=== PATIENT | female | born 1960 | race Caucasian/White ===

== ENCOUNTER 2018-02-26 06:14 | Day surgery (SDC) | payer OTHER, SELFPAY ==
[2018-02-26 06:20] VITALS: BP 123/85; PULSE 97; RESP 16; TEMP 36.4; O2SAT 96
--- NOTE | 2018-02-26 06:44 | W.PM.DSUDISC ---
Discharge Plan Disposition Patient Disposition: HOME Condition: Fair Discharge Details Reason For Visit: PERSONAL HX COLON CA Attending Provider: Gypsy Ruff Primary Care Provider: Lloyd Jansen Home Meds and New Rx's Prescriptions: Continue ul-np-zibb-FA-herbal cmplx#190 [Vitamin D3 Complete] 1 EACH tablet 1 ea PO DAILY RF: 0 Discontinued bisacodyl [Bisa-Lax] 5 MG tablet,delayed release (DR/EC) 5 mg PO as directed Qty: 4 RF: 0 polyethylene glycol 3350 255 GM powder 255 gm PO as directed for colo Qty: 255 RF: 0 Discharge Instructions Instructions: Colonoscopy (DC), Diverticulosis (DC) Additional Instructions: Findings: 4 small polyps No re-growth in the area of the previous polyps Mild diverticulosis Follow up: depends on final pathology Diet: high fiber New Medications: none Please call if you develop: fevers >101.5 Nausea or Vomiting Abdominal pain that is not transient 1. Because there will be medication in your system for the next 24 hours, you may feel a little sleepy. Your coordination will be affected. Therefore: a. Do not drive or operate dangerous equipment for 24 hours. b. Do not drink alcohol beverages for 24 hours (not even beer). c. Plan to go home and rest for the day. 2. Generally there are no restrictions on your activity after a day or so has gone by, but you may feel a bit fatigued for a few days. 3 After you arrive home you may have a light meal and return to a normal diet as you can tolerate it without feeling sick to your stomach. 4. After surgery, you may feel pain or discomfort. This should be only transient, but if it persists please contact your doctor. 5. If there are any questions regarding the findings of your procedure, please feel free to contact your doctor ([phone]) 6. If you are unable to contact your doctor with a problem, contact the hospital at [phone]. 7. Continue all your regular medications unless directed otherwise. I understand the above instructions and have no questions. Signature of Patient or Responsible Adult Escort Date/Time Name of Responsible Adult Escort Signature of Nurse Date/Time Activity:: Activity as Tolerated Diet:: high fiber Discharge Orders Discharge Orders: Discharge Order (Routine); Ordered 02/26/18 Ordered By: Gypsy Ruff DS: Diagnosis Discharge Diagnosis (1) Diverticulosis: Status: Acute (2) Colorectal polyps: Status: Acute
--- NOTE | 2018-02-26 06:47 | PDOC.DSDIS_ITS ---
Discharge Plan Disposition Patient Disposition: HOME Condition: Fair Discharge Details Reason For Visit: PERSONAL HX COLON CA Attending Provider: Gypsy Ruff Primary Care Provider: Lloyd Jansen Home Meds and New Rx's Prescriptions: Continue yd-cy-sjhm-FA-herbal cmplx#190 [Vitamin D3 Complete] 1 EACH tablet 1 ea PO DAILY RF: 0 Discontinued bisacodyl [Bisa-Lax] 5 MG tablet,delayed release (DR/EC) 5 mg PO as directed Qty: 4 RF: 0 polyethylene glycol 3350 255 GM powder 255 gm PO as directed for colo Qty: 255 RF: 0 Discharge Instructions Instructions: Colonoscopy (DC), Diverticulosis (DC) Additional Instructions: Findings: 4 small polyps No re-growth in the area of the previous polyps Mild diverticulosis Follow up: depends on final pathology Diet: high fiber New Medications: none Please call if you develop: fevers >101.5 Nausea or Vomiting Abdominal pain that is not transient 1. Because there will be medication in your system for the next 24 hours, you may feel a little sleepy. Your coordination will be affected. Therefore: a. Do not drive or operate dangerous equipment for 24 hours. b. Do not drink alcohol beverages for 24 hours (not even beer). c. Plan to go home and rest for the day. 2. Generally there are no restrictions on your activity after a day or so has gone by, but you may feel a bit fatigued for a few days. 3 After you arrive home you may have a light meal and return to a normal diet as you can tolerate it without feeling sick to your stomach. 4. After surgery, you may feel pain or discomfort. This should be only transient , but if it persists please contact your doctor. 5. If there are any questions regarding the findings of your procedure, please feel free to contact your doctor ([phone]) 6. If you are unable to contact your doctor with a problem, contact the hospital at [phone]. 7. Continue all your regular medications unless directed otherwise. I understand the above instructions and have no questions. Signature of Patient or Responsible Adult Escort Date/Time Name of Responsible Adult Escort Signature of Nurse Date/Time Activity:: Activity as Tolerated Diet:: high fiber Discharge Orders Discharge Orders: Discharge Order (Routine); Ordered 02/26/18 Ordered By: Gypsy Ruff DS: Diagnosis Discharge Diagnosis (1) Diverticulosis: Status: Acute (2) Colorectal polyps: Status: Acute
--- NOTE | 2018-02-26 06:47 | W.COLOREPORT ---
Date of service: 02/26/18 Time of Service: 07:30 Colonoscopy Report Date of procedure: 02/26/18 Pre-op diagnosis general: Adenocarcinoma of colon polyp Post-op diagnosis procedure note: same Procedure: Colonoscopy Surgeon: Gypsy Ruff Anesthesia proc note operative: MAC (Puneet Benitez CRNA) Estimated blood loss (mL): 3 Pathology: other (4 polyps) Complications: None Disposition: same day Indications: Mrs. Corey is a pleasant 57 year old female who underwent a colonoscopy in May and was found to have 2 polyps. One polyp had focal adenocarcinoma and one had high grade dysplacia. She is here for a follow up colonsocopy to make sure there is no regrowth. Risks, benefits and complications have been reviewed and she wished to proceed. No gurantees were given or implied. Prep: Miralax (and dulcolax- prep was adequate) Procedure Start Time: 07:29 Procedure End Time: 07:57 Retraction Time: 17 min Findings: 4 small polyps and mild diverticulosis No re-growth noted at the tatooed areas Procedure Description: After informed consent was obtained the patient was taken to the procedure room and placed in the left decubitus position. Monitors were applied and a timeout was done. Patient's name date of procedure type allergies to medications of metal in her body were all reviewed. The patient was then sedated and once sedated and comfortable rectal exam was done. External exam was normal and internal exam revealed a normal sphincter tone and no palpable masses. The scope was introduced and retroflexed no internal hemorrhoids were noted. The scope was straightened and advanced to the cecum without difficulty. The T and appendiceal orifice were both identified. The prep was adequate. The scope was then slowly retracted over [address] back into the rectum. 4 small polyps were identified and removed with cold forceps. One in the ascending colon one in the transverse colon one in the sigmoid colon and one in the rectum. There are 2 areas where she had the prior polyps removed were identified by the tattooing. No regrowth was noted in both those areas. Once this scope was removed the patient was woken up and taken back to recovery in stable condition.
[2018-02-26] MEDS: Lactated Ringers 1,000 ML 80 ML IV (06:51)
--- NOTE | 2018-02-26 07:31 | BOWEL_PTH ---
PATIENT: April Corey LOC: [facility] U#:[id number] AGE/SX: 57/F ROOM: RE02/26/[address]: Gypsy Ruff MD : 1960 BED: DIS: 02/26/2018 SPEC #: [id number] RECD: 02/26/18 12:52 STATUS: PAOLA RE #: [id number] REYNALDO: 02/26/18 07:[address]: Gypsy Ruff DEPT: Surgical Specimen RECD BY: Nedra La ENTERED: 02/26/18 12:54 SP TYPE: Bowel OTHR DR: Lloyd Jansen Tissues: 1 - BIOPSY BOWEL 2 - BIOPSY BOWEL 3 - BIOPSY BOWEL 4 - BIOPSY BOWEL Procedures: GROSS AND MICRO LEVEL 4 Comments: [id number]
[2018-02-26 08:30] VITALS: BP 137/84; PULSE 84; RESP 18; TEMP 37; O2SAT 99
== END 2018-02-26 08:55 | disposition home or self-care (01) ==
PROVIDERS: PCP Family Medicine; Visit Provider Surgery
PROC: 0DJD8ZZ Inspection of Lower Intestinal Tract, Via Natural or Artificial Opening Endoscopic (ICD-10-PCS; CPT 45378; principal; 2018-02-26 07:30)
DX: C18.7 Malignant neoplasm of sigmoid colon (principal); K63.5 Polyp of colon; D12.2 Benign neoplasm of ascending colon; D12.3 Benign neoplasm of transverse colon
CPT/HCPCS: 45380; 88305

== ENCOUNTER 2021-06-04 18:29 | Outpatient (REF) | payer OTHER, SELFPAY ==
[2021-06-04 18:56] LABS: Calculated LDL 81 mg/dL (<100); Cholesterol 166 mg/dL (<200); HDL Cholesterol 60 mg/dL (40-60); Triglyceride 128 mg/dL (<150)
[2021-06-04 18:59] LABS: Hemoglobin A1C 4.9 % (<5.7)
== END 2021-06-04 18:30 | disposition home or self-care (01) ==
LOC: NCHCN 18:29
PROVIDERS: PCP Family Medicine; Visit Provider Family Medicine
DX: C18.9 Malignant neoplasm of colon, unspecified (principal); Z00.00 Encounter for general adult medical examination without abnormal findings
CPT/HCPCS: 80061; 83036

== ENCOUNTER 2021-08-18 01:09 | Outpatient (CLI) | payer OTHER, SELFPAY ==
--- NOTE | 2021-08-18 | DI.MAMMO_ITS ---
Exam(s) MAMMO SCREENING EXAM: MAMMO SCREENING CLINICAL HISTORY: SCREENING, Z12.39 TECHNIQUE: Mammograms were interpreted according to the usual protocol including computer analysis w [facility] CAD system, tomosynthesis and C-view imaging. COMPARISON: FINDINGS: The breasts are heterogeneously dense. No dominant mass or clumped microcalcification is identified in either breast. The current examination is compared with previous examinations including October 2017 and there has been no gross interval change in appearance in comparison with the prior studies. IMPRESSION: No specific evidence of malignancy at this time. Routine screening examinations are suggested at yea rly intervals in this age group according to the ACS ACR guidelines. BI-RADS Category 1 - Negative Breast Density - Category C - Heterogeneously dense
== END 2021-08-18 01:29 ==
PROVIDERS: PCP Family Medicine; Visit Provider Family Medicine
DX: Z12.31 Encounter for screening mammogram for malignant neoplasm of breast (principal); R92.8 Other abnormal and inconclusive findings on diagnostic imaging of breast
CPT/HCPCS: 77063; 77067

== ENCOUNTER 2021-10-19 07:07 | Day surgery (SDC) | payer OTHER, SELFPAY ==
--- NOTE | 2021-10-18 10:19 | W.COLOREPORT ---
Colonoscopy Report Date of procedure: 10/19/21 Pre-op diagnosis general: Polyps with high-grade dysplasia and cancer Post-op diagnosis procedure note: other (mult polyps) Surgeon: Windy Lancaster Anesthesia Type: General:No Airway Estimated blood loss (mL): 1 Pathology: other Complications: None Disposition: same day Prep: Miralax/Dulcolax Retraction Time: 30 mins Procedure Description: -In 2016 patient had x2 polyps that were abnormal. Descending sigmoid at 37 5 cm adenocarcinoma with high-grade dysplasia 15 cm villous with high-grade dysplasia -In 2018 patient had a ascending colon polyp that did show serrated with high-grade dysplasia. This area was tattooed. After informed consent was obtained the patient was taken to the procedure room and placed in a left decubitous position. Monitors were applied and a time out was done. The patients name, date of , procedure, allergies to medications and metal in their body was reviewed. The patient was then sedated. Once sedated and comfortable a rectal exam was done. External exam was normal. Internal exam revealed a normal sphincter tone and no palpable masses. The scope was then introduced and retrofelexed. No internal hemorrhoids were identified. The scope was then advanced to the cecum withoutdifficulty. The TI and appendiceal orifice were identified. The prep was the BPS 3 in all segments for a total of 9. The colon is very tortuous and redundant. [place] through the procedure, patient developed significant secretions that were compromising her airway. We could not ameliorate the secretions by medications only. We still had a significant mount of polyps to remove at that point. At that point there was concern for aspiration and the procedure was converted to a General with ET tube to protect her airway. Have the scope was then slowly retracted over 30minutes back into the rectum. she had x2 diminutive flat polyps in the cecum that are removed with a cold biopsy forcep. She had another polyp small, flat, adjacent to the cecum/ 100 cm that is removed with a cold biopsy forcep. She had a 0.75 cm polyp flat removed at 80 cm with a hot biting forcep and 0.75 cm flat polyp at 60 cm is removed with a hot biting forcep. All specimens are retrieved and no bleeding is noted. The area of the previous tattoo was noted. There is no polyp recurrence in this area. There are no diverticula. The mucosa is pink and healthy with a normal vascular pattern. And the patient was woken up and taken back to PACU in stable condition. The patient tolerated the procedure well and there were no immediate complications. Follow up: The patient should follow up in 1 years unless they develop changes in bowel habits or other new gastrointestinal complaints. Post Op pt was c/o sore throat. She did vomiting in PACU. The material did appear to be coffee ground. She was not having any abdominal pain. She did tolerate liquids and a small snack in SDS. She was passing flatus and not having any abdominal pain. Her only complaint was sore throat. She should gargle with salt water 5-6 times a day. This should pass in the next 24 to 48 hours. Because of the number of polyps, and her history of cancerous polyps, she should have the scope repeated in 1 years time.
--- NOTE | 2021-10-18 10:25 | PDOC.DSDIS_ITS ---
Discharge Plan Disposition Patient Disposition: HOME Condition: Good Discharge Details Reason For Visit: colon scope Attending Provider: Windy Lancaster Primary Care Provider: Lloyd Jansen Home Meds and New Rx's Prescriptions: Discontinued bisacodyl [Dulcolax (bisacodyl)] 5 mg tablet,delayed release (DR/EC) 5 mg PO ONCE Qty: 4 0RF Rx Instructions: Take according to provider's instructions for colonoscopy prep. polyethylene glycol 3350 17 gram/dose powder 17 g PO ONCE Qty: 238 0RF Rx Instructions: To be taken as directed by prescriber's office for colonoscopy prep. No Action cholecalciferol (vitamin D3) 50 mcg (2,000 unit) capsule 50 mcg PO DAILY 0RF Discharge Instructions Additional Instructions: [facility] Colonoscopy Post- Op Instructions Instructions for Everyone who is given Anesthesia: For your safety, please do the following for the next twenty-four (24) hours: *Do Not operate a motor vehicle (car, truck, motorcycle, etc.) *Do Not drink alcoholic beverages or use any recreational drugs for the first 24 hours or while taking pain medications. The medications in your body may have a reaction that can be dangerous. *Do Not make any important decisions or sign any important papers. Findings: multiple polyps Follow up: repeat in 1year -no asa/nsaid (motrin/ibuprofen/naproxen) 1. No lifting over 20 pounds or strenuous activity for the first 24 hours after your procedure. After 24 hours there are no restrictions on your activity but you may feel fatigued for a few days. 2. After you arrive home you may have a light meal and return to your normal diet as you can tolerate it without feeling sick to your stomach. 3. You may have a bloated, gaseous feeling in your belly (abdomen) after a colonoscopy. Passing gas and belching will help. Walking or lying down on your left side with your knees flexed may relieve the discomfort. Call the office at [phone] (Office) or [phone] (Hospital) right away i f you notice any of the following: a.Vomiting of blood or ?coffee ground stools?. b.Rectal bleeding 1Tbsp, blood clots or continuous bleeding. c.Severe belly (abdominal) pain. d.A hard distended belly (abdomen) and an inability to pass gas. 4. Please don?t expect to have a normal BM (bowel movement) for 2-3 days after your procedure. 5. If there are questions regarding the findings of your procedure, please contact your doctor 6. If you are unable to contact your doctor with a problem, contact the hospital at [phone]. 7. Continue all your regular medications unless directed otherwise. I understand the above instructions and have no questions. Signature of Patient or Adult Escort Name of Responsible Adult Escort Signature of Nurse Date/Time Activity:: see above Diet:: see above Discharge Orders Discharge Orders: Discharge Order (Routine); Ordered 10/18/21 Ordered By: Windy Lancaster
[2021-10-19] VITALS (10 sets, daily range): BP systolic 89–121; BP diastolic 54–80; PULSE 76–120; RESP 16–30; TEMP 36.1–36.5; O2SAT 92–97; BMI 28.0
--- NOTE | 2021-10-19 06:21 | ANES.PREOP_ITS ---
General Info Date of Service Date Performed: 10/19/21 Height: 5 ft 4 in Weight: 74.049 kg Body Mass Index (BMI): 28.0 Surgical Procedure: Operation Date: 10/19/21 08:20 Proposed Procedure Side Surgeon abbe Lancaster, Meds Allergies and Home Medications Allergies Allergy/AdvReac Type Severity Reaction Status Date / Time No Known Allergies Allergy Unverified 10/19/21 07:27 Home Medication Medication Instructions Recorded cholecalciferol (vitamin D3) 50 50 mcg PO DAILY 09/24/21 mcg (2,000 unit) capsule Current Visit Medications: Current Medications Generic Name Dose Route Start Last Admin Trade Name Freq PRN Reason Stop Dose Admin Hyoscyamine Sulfate 0.125 mg 10/18/21 10:18 Hyoscyamine 0.125 Mg Sl/Oral/Chew SL DIRECTED PRN Ringer's Solution 1,000 mls @ 80 mls/hr 10/19/21 06:00 IV 11/17/21 23:59 INFUSION [facility] IV Miscellaneous Supplies 1 each 10/19/21 06:00 Iv Access IV 11/17/21 23:59 DIRECTED WINDY Ondansetron HCl 4 mg 10/18/21 10:18 Ondansetron 4 Mg/2 Ml Vial IVP Q4H PRN PRN Nausea / Vomiting Sodium Chloride 0 ml 10/19/21 06:00 Normal Saline Flush 10 Ml Syr IV 11/17/21 23:59 PRN PRN Sodium Chloride 0 ml 10/19/21 06:00 Normal Saline 10 Ml Vial IJ 11/17/21 23:59 DIRECTED PRN Sterile Water 0 ml 10/19/21 06:00 Water,Injection,Sterile 10 Ml Vial IJ 11/17/21 23:59 DIRECTED PRN PFSH Active Problems Active Problems: Problem Status Onset Code Diverticulosis K57.90 Colorectal polyps K63.5 Atrophic vaginitis 10/27/15 N95.2 Tubular adenoma of colon 12/27/16 D12.6 Cystocele 10/27/15 Tubular adenoma 05/23/16 D36.9 Screening for colon cancer Z12.11 Medical History Medical History Colon cancer Per pt. states she had one polyp that was cancerous, didn't require tx for it. Polyp of sigmoid colon with adenocarcinoma in the head Vitamin D deficiency Surgical History Surgical History Colonoscopy - MAC (05/23/16) Colonoscopy - MAC (12/27/16) History of colonoscopy (~10/2017) Sigmoidoscopy (12/27/16) tubular adenoma Tobacco Smoking/Tobacco Use Status: Former Tobacco Use Alcohol Alcohol Intake: current Alcohol intake frequency: a few times a month Alcohol type: beer Substance Use Substance use: Never Substance use type: does not use Vital Signs and Lab Results Vital Signs Most Recent Vital Signs in EMR: Temp Pulse Resp BP Pulse Ox 36.4 C L 120 H 18 121/80 97 10/19/21 07:20 10/19/21 07:20 10/19/21 07:20 10/19/21 07:20 10/19/21 07:20 Lab Results Blood Type / Crossmatch: No Data to Display Complete Blood Count: No Data to Display Complete Metabolic Panel: No Data to Display Liver Function Panel: No Data to Display Coagulation Panel: No Data to Display Cardiac Panel: No Data to Display Arterial Blood Gas: No Data to Display Venous Blood Gas: No Data to Display Pancreas Panel: No Data to Display Thyroid Panel: No Data to Display Infectious Disease: No Data to Display Blood Cultures: No Data to Display Toxicology Panel: No Data to Display Anesthesia Assessment and Plan Anesthesia History Personal History: No History of Anesthesia Complications Family History: No Family History of Anesthesia Complications Exercise Tolerance Exercise Tolerance: Metabolic Equivalents>4 Cardiac & Pulmonary Exam Cardiac Exam: Normal S1/S2 Heart Sounds Pulmonary Exam: Clear Bilateral Breath Sounds Implantable Cardiac Device Does patient have a Pacemaker or an ICD?: No Airway Exam Known Difficult Airway: No Mallampati Class: 3 Mouth Opening: Normal (> 3cm) Thyromental Distance: Greater than 3 cm Neck Range of Motion: Full ROM Neck Circumference: Normal Teeth Condition: Normal Dentition ASA Classification ASA Score: ASA 2 Emergency Case?: No NPO Status NPO Status: NPO Clears >2 hours, Solids >8 hours Anesthesia Plan Resuscitation Status: Full Code Anesthesia Technique: General Anesthesia Airway Planned: Natural Airway Monitors Used: Standard Monitors Preoperative Comments:: 61 yo female with history of polyps for colonoscopy. Sig PMHx: former smoker, occ EtOH. Previous colo without issues.
[2021-10-19] MEDS: Lactated Ringers 1,000 ML 80 ML IV (07:39)
--- NOTE | 2021-10-19 08:58 | BOWEL_PTH ---
PATIENT: April Corey LOC: [facility] U#:[id number] AGE/SX: 61/F ROOM: RE10/19/[address]: Windy Lancaster : 1960 BED: DIS: 10/19/2021 SPEC #: [id number] RECD: 10/19/21 10:52 STATUS: PAOLA RE #: [id number] REYNALDO: 10/19/21 08:[address]: Windy Lancaster DEPT: Surgical Specimen RECD BY: Nedra La ENTERED: 10/19/21 10:53 SP TYPE: Bowel OTHR DR: Lloyd Jansen Tissues: 1 - BIOPSY BOWEL 2 - BIOPSY BOWEL 3 - BIOPSY BOWEL 4 - BIOPSY BOWEL Procedures: GROSS AND MICRO LEVEL 4 Comments: [id number]
[2021-10-19 09:48] LABS: Source Nasal/Nares
[2021-10-19 10:32] LABS: COVID-19 PCR Negative (Negative)
--- NOTE | 2021-10-19 10:37 | ANES.POST_ITS ---
Postoperative Evaluation Date, Time and Location Date Performed: 10/19/21 Time Performed: 12:16 Patient Location: Day Surgery Unit Vital Signs Most Recent Imported Vital Signs: Most Recent Vital Signs Temp Pulse Resp BP Pulse Ox 36.1 C L 91 H 30 H 120/73 95 10/19/21 10:17 10/19/21 10:17 10/19/21 10:17 10/19/21 10:17 10/19/21 10:17 Pain Score Most Recent Pain Score: Most Recent Pain Score Pain Level 0 10/19/21 07:20 Assessment Mental Status: Awake (Alert & Oriented to Patient Baseline) Airway and Respiratory Function: Patent airway with normal (patient baseline) respiratory exam Cardiovascular Function: Hemodynamically Stable Hydration Status: Adequately Hydrated Nausea & Vomiting: Active Nausea or Vomiting Present Nausea and Vomiting Management: Nausea and vomiting active, being addressed with medication Pain: Pt. Denies Any Pain Peripheral Nerve Block: Patient did not receive a nerve block Postoperative Comments:: On arousal in PACU, vomiting brown liquid, ~ 75 mL caught in suction, per patient financial representative ~200-400 mLs total of brown particulate liquid out. On arrival to DSU did discuss with patient the course of her case and the need for a breathing tube during the procedure. she states that she was NPO and was hungry. She was advised to follow up with the ED if she developed shortness of breath, fever, or any concerning respiratory symptoms.
--- NOTE | 2021-11-01 08:17 | PDOC.ANES ---
Date of service: 10/25/21 Time of Service: 13:17 Anesthesia Note Report Anesthesia Note: Called [phone] to follow up with April in regards to her recent potential aspiration during her colonoscopy. There was no answer and a message was left to call with any concerns.
== END 2021-10-19 13:08 | disposition home or self-care (01) ==
PROVIDERS: PCP Family Medicine; Visit Provider Surgery
PROC: 0DJD8ZZ Inspection of Lower Intestinal Tract, Via Natural or Artificial Opening Endoscopic (ICD-10-PCS; CPT 45378; principal; 2021-10-19 08:15)
DX: Z12.11 Encounter for screening for malignant neoplasm of colon (principal); K63.5 Polyp of colon; Z86.010 Personal history of colon polyps; E55.9 Vitamin D deficiency, unspecified; Z85.038 Personal history of other malignant neoplasm of large intestine
CPT/HCPCS: 45384; 45380; 87635; 88305; J2250; J2704

== ENCOUNTER 2023-04-21 10:06 | Day surgery (SDC) | payer BC, SELFPAY ==
--- NOTE | 2023-04-20 21:31 | PDOC.DSDIS_ITS ---
Date of service: 04/21/23 Time of Service: 14:16 Discharge Plan Disposition Patient Disposition: Home Condition: Good Discharge Details Reason For Visit: colon scope Attending Provider: Windy Lancaster Primary Care Provider: Lloyd Jansen Home Meds and New Rx's Prescriptions: No Action cholecalciferol (vitamin D3) 50 mcg (2,000 unit) capsule 50 mcg PO DAILY Discharge Instructions Additional Instructions: DSU Colonoscopy Post- Op Instructions Instructions for Everyone who is given Anesthesia: For your safety, please do the following for the next twenty-four (24) hours: *Do Not operate a motor vehicle (car, truck, motorcycle, etc.) *Do Not drink alcoholic beverages or use any recreational drugs for the first 24 hours or while taking pain medications. The medications in your body may have a reaction that can be dangerous. *Do Not make any important decisions or sign any important papers. Findings: x6 polyps Follow up: My office will send you a letter with the biopsy/pathology results, and when we want you to repeat the colonoscopy. Most likely 2 years time. 1. No lifting over 20 pounds or strenuous activity for the first 24 hours after your procedure. After 24 hours there are no restrictions on your activity but you may feel fatigued for a few days. 2. After you arrive home you may have a light meal and return to your normal diet as you can tolerate it without feeling sick to your stomach. 3. You may have a bloated, gaseous feeling in your belly (abdomen) after a colonoscopy. Passing gas and belching will help. Walking or lying down on your left side with your knees flexed may relieve the discomfort. Call the office at [phone] (Office) or [phone] (Hospital) right away if you notice any of the following: a.Vomiting of blood or ?coffee ground stools?. b.Rectal bleeding 1Tbsp, blood clots or continuous bleeding. c.Severe belly (abdominal) pain. d.A hard distended belly (abdomen) and an inability to pass gas. 4. Please don?t expect to have a normal BM (bowel movement) for 2-3 days after your procedure. 5. If there are questions regarding the findings of your procedure, please contact your doctor 6. If you are unable to contact your doctor with a problem, contact the hospital at [phone]. 7. Continue all your regular medications unless directed otherwise. I understand the above instructions and have no questions. 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 The patient has been able to pass gas.? They are not having abdominal pain.? They have been able to tolerate liquids and a snack.? They do not have any nausea or vomiting.? They are not having any chest pain or shortness of breath.??? They are not having any rectal bleeding. Their vital signs have been stable-see nursing notes. We discussed findings during their colonoscopy, and any biopsies that were done/polyps that were removed. The patient will be sent a letter with any biopsy results, and when to repeat the colonoscopy.-see discharge instructions. Patient was given explicit instructions to follow-up regarding colonoscopy-refer to discharge instructions.? We reviewed resumption of medications. Patient verbalized understanding and discharged in stable and satisfactory condition- See nursing notes.
--- NOTE | 2023-04-20 21:40 | W.COLOREPORT ---
Date of service: 04/21/23 Time of Service: 14:11 Colonoscopy Report Date of procedure: 04/21/23 Pre-op diagnosis general: hx of mult tubular adenomatous/advanced polyp/cancerous in sigmoid Post-op diagnosis procedure note: same ( sigmoid diverticula) Surgeon: Windy Lancaster Anesthesia Type: General LMA/ETT Estimated blood loss (mL): 4 Pathology: other Complications: None Disposition: same day Prep: Miralax/Dulcolax Retraction Time: 29 Procedure Description: After informed consent was obtained the patient was taken to the procedure room and placed in a left decubitous position. Monitors were applied and a time out was done. The patients name, date of , procedure, allergies to medications and metal in their body was reviewed. The patient was then sedated. Once sedated and comfortable a rectal exam was done. External exam was normal. Internal exam revealed a normal sphincter tone and no palpable masses. The scope was then introduced and retrofelexed. No internal hemorrhoids were identified. The scope was then advanced to the cecum w/out difficulty. The TI and appendiceal orifice were identified. The prep was BBPS 3 in all segments for total of 9 go she does follow okay. The scope was then slowly retracted over 29 minutes back into the rectum. She has a few small scattered diverticula in the sigmoid colon with no signs of active bleeding or infection. She had multiple polyps removed today. She has a small flat 0.5 cm polyp in the cecum that is removed with a cold biting forcep. She had a flat 1 cm polyp at 90 cm that is removed with a cold biting forcep. A clip was placed across the defect. She has x2 polyps at 70 cm: The First polyp is removed with a cold snare-1 cm pedunculated polyp. A clip was placed across the defect. The other polyp is removed with a cold forcep-.5 cm flat polyp the scope was removed. She has x2f 0.5 cm flat polyp at 50 cm that are removed with cold biting forcep. She has a 0.75 cm polyp at 30 cm that is removed with a cold biting forcep. And the patient was woken up and taken back to Same day surgery in stable condition. All specimens are retrieved and no bleeding is noted. The mucosa is otherwise pink and healthy with a normal vascular pattern The patient tolerated the procedure well and there were no immediate complications. Follow up: The patient should follow up in 1-2 years unless they develop changes in bowel habits or other new gastrointestinal complaints.
[2023-04-21] VITALS (8 sets, daily range): BP systolic 104–149; BP diastolic 54–83; PULSE 65–84; RESP 15–19; TEMP 36.2–36.6; O2SAT 96–100; BMI 26.4
[2023-04-21] MEDS: Lactated Ringers 1,000 ML 80 ML IV (12:29)
--- NOTE | 2023-04-21 12:41 | W.ANESPRE ---
General Info Date of Service Date Performed: 04/21/23 Height: 5 ft 4 in Weight: 69.8 kg Body Mass Index (BMI): 26.4 Surgical Procedure: Operation Date: 04/21/23 14:50 Proposed Procedure Side Surgeon abbe Lancaster, Meds Allergies and Home Medications Allergies Allergy/AdvReac Type Severity Reaction Status Date / Time No Known Allergies Allergy Unverified 04/21/23 12:11 Home Medication Medication Instructions Recorded cholecalciferol (vitamin D3) 50 50 mcg PO DAILY 09/24/21 mcg (2,000 unit) capsule Current Visit Medications: Current Medications Generic Name Dose Route Start Last Admin Trade Name Freq PRN Reason Stop Dose Admin Hyoscyamine Sulfate 0.125 mg 04/21/23 08:36 Hyoscyamine 0.125 Mg Sl/Oral/Chew SL 05/21/23 08:35 DIRECTED PRN Ringer's Solution 1,000 mls @ 80 mls/hr 04/21/23 06:00 04/21/23 12:29 IV 05/20/23 23:59 80 mls/hr INFUSION WINDY Administration IV Miscellaneous Supplies 1 each 04/21/23 06:00 Iv Access IV 05/20/23 23:59 DIRECTED WINDY Ondansetron HCl 4 mg 04/21/23 08:36 Ondansetron 4 Mg/2 Ml Vial IVP 05/21/23 08:35 Q4H PRN PRN Nausea / Vomiting Sodium Chloride 0 ml 04/21/23 06:00 Normal Saline Flush 10 Ml Syr IV 05/20/23 23:59 PRN PRN Sodium Chloride 0 ml 04/21/23 06:00 Normal Saline 10 Ml Vial IJ 05/20/23 23:59 DIRECTED PRN Sterile Water 0 ml 04/21/23 06:00 Water,Injection,Sterile 10 Ml Vial IJ 05/20/23 23:59 DIRECTED PRN PFSH Active Problems Active Problems: Problem Status Onset Code 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 states she had one polyp that was cancerous, didn't require tx for it. Surgical History Surgical History History of colonoscopy (~10/19/21) 10/201712/27/16 05/23/16 Sigmoidoscopy (12/27/16) tubular adenoma Tobacco Smoking/Tobacco Use Status: Former Tobacco Use Alcohol Alcohol Intake: current Alcohol intake frequency: a few times a month Alcohol type: beer Substance Use Substance use: Never Substance use type: does not use Vital Signs and Lab Results Vital Signs Most Recent Vital Signs in EMR: Most Recent Vital Signs Temp Pulse Resp BP Pulse Ox 36.6 C 84 16 149/83 H 98 04/21/23 12:14 04/21/23 12:14 04/21/23 12:14 04/21/23 12:14 04/21/23 12:14 Lab Results Blood Type / Crossmatch: No Data to Display Complete Blood Count: No Data to Display Complete Metabolic Panel: No Data to Display Liver Function Panel: No Data to Display Coagulation Panel: No Data to Display Cardiac Panel: No Data to Display Arterial Blood Gas: No Data to Display Venous Blood Gas: No Data to Display Pancreas Panel: No Data to Display Thyroid Panel: No Data to Display Infectious Disease: No Data to Display Blood Cultures: No Data to Display Toxicology Panel: No Data to Display Anesthesia Assessment and Plan Anesthesia History Personal History: No History of Anesthesia Complications Family History: No Family History of Anesthesia Complications Exercise Tolerance Exercise Tolerance: Metabolic Equivalents>4 Pertinent Negatives Pertinent Negatives: No Symptoms of GERD, No Major Cardiovascular Symptoms or Complaints, No Major Pulmonary Symptoms or Complaints and No History of CVA/TIA Cardiac & Pulmonary Exam Cardiac Exam: Normal S1/S2 Heart Sounds Pulmonary Exam: Clear Bilateral Breath Sounds Implantable Cardiac Device Does patient have a Pacemaker or an ICD?: No Airway Exam Known Difficult Airway: No Mallampati Class: 3 Mouth Opening: Normal (> 3cm) Thyromental Distance: Greater than 3 cm Neck Range of Motion: Full ROM Neck Circumference: Normal Teeth Condition: Normal Dentition (some broken, none loose per patient) ASA Classification ASA Score: ASA 2 Emergency Case?: No NPO Status NPO Status: NPO Clears >2 hours, Solids >8 hours Anesthesia Plan Resuscitation Status: Full Code Anesthesia Technique: General Anesthesia Airway Planned: Endotracheal Tube Monitors Used: Standard Monitors Preoperative Comments:: Last colonoscopy, vomited and potential aspiration. Plan RSI ETT today.
--- NOTE | 2023-04-21 13:36 | BOWEL_PTH ---
PATIENT: April Corey LOC: [facility] U#:[id number] AGE/SX: 62/F ROOM: RE04/21/[address]: Windy Lancaster : 1960 BED: DIS: 04/21/2023 SPEC #: [id number] RECD: 04/21/23 16:48 STATUS: PAOLA RE #: [id number] REYNALDO: 04/21/23 13:[address]: Windy Lancaster DEPT: Surgical Specimen RECD BY: Nedra La ENTERED: 04/21/23 16:51 SP TYPE: Bowel OTHR DR: Lloyd Jansen Tissues: 1 - BIOPSY BOWEL 2 - BIOPSY BOWEL 3 - BIOPSY BOWEL 4 - BIOPSY BOWEL 5 - BIOPSY BOWEL Procedures: GROSS AND MICRO LEVEL 4 Comments: [id number]
--- NOTE | 2023-04-21 15:42 | W.ANESPOSTOP ---
Postoperative Evaluation Date, Time and Location Date Performed: 04/21/23 Time Performed: 14:45 Patient Location: PACU Vital Signs Most Recent Imported Vital Signs: Most Recent Vital Signs Temp Pulse Resp BP Pulse Ox 36.6 C 65 16 134/71 100 04/21/23 15:16 04/21/23 15:16 04/21/23 15:16 04/21/23 15:16 04/21/23 15:16 Pain Score Most Recent Pain Score: Most Recent Pain Score Pain Level 0 04/21/23 15:16 Assessment Mental Status: Awake (Alert & Oriented to Patient Baseline) Airway and Respiratory Function: Patent airway with normal (patient baseline) respiratory exam Cardiovascular Function: Hemodynamically Stable Hydration Status: Adequately Hydrated Nausea & Vomiting: No Nausea or Vomiting Pain: Pt. Denies Any Pain Peripheral Nerve Block: Patient did not receive a nerve block
== END 2023-04-21 15:30 | disposition home or self-care (01) ==
PROVIDERS: PCP Family Medicine; Visit Provider Surgery
PROC: 0DJD8ZZ Inspection of Lower Intestinal Tract, Via Natural or Artificial Opening Endoscopic (ICD-10-PCS; CPT 45378; principal; 2023-04-21 14:45)
DX: Z12.11 Encounter for screening for malignant neoplasm of colon (principal); Z86.010 Personal history of colon polyps; D12.0 Benign neoplasm of cecum; K57.30 Diverticulosis of large intestine without perforation or abscess without bleeding; D12.3 Benign neoplasm of transverse colon; D12.5 Benign neoplasm of sigmoid colon
CPT/HCPCS: 45380; 88305; J2001; J2405; J2704

== ENCOUNTER 2023-07-24 16:02 | Outpatient (REF) | payer BC, SELFPAY ==
[2023-07-24 16:26] LABS: Calculated LDL 62 mg/dL (<100); Cholesterol 159 mg/dL (<200); HDL Cholesterol 67 mg/dL (40-60); Triglyceride 152 mg/dL (<150)
[2023-07-24 17:22] LABS: Hemoglobin A1C 4.9 % (<5.7)
[2023-07-25 09:47] LABS: HIV-1/2 Ag & Ab Screen Negative (Negative)
== END 2023-07-24 16:03 | disposition home or self-care (01) ==
LOC: NCHCN 16:02
PROVIDERS: PCP Family Medicine; Visit Provider Family Medicine
DX: Z13.1 Encounter for screening for diabetes mellitus (principal); Z13.6 Encounter for screening for cardiovascular disorders; Z11.4 Encounter for screening for human immunodeficiency virus [HIV]
CPT/HCPCS: 80061; 87389; 83036

== ENCOUNTER 2023-07-31 10:52 | Outpatient (REF) | payer BC, SELFPAY ==
--- NOTE | 2023-07-31 10:00 | PAPFT_PTH ---
PATIENT: April Corey LOC: [facility] U#:[id number] AGE/SX: 62/F ROOM: RE07/31/[address]: Ida Hobbs MD : 1960 BED: DIS: 07/31/2023 SPEC #: [id number] RECD: 07/31/23 13:24 STATUS: PAOLA REJuan #: [id number] REYNALDO: 07/31/23 10:[address]: Ida Hobbs DEPT: FA Cytology RECD BY: Nedra La ENTERED: 07/31/23 13:24 SP TYPE: PAPFT OTHR DR: Lloyd Jansen Tissues: 1 - CX/ENDOCX FOR PAP SMEARS Procedures: PAP THIN PREP/[facility] Screening HPV DNA PROBE Comments: [id number]
== END 2023-07-31 10:53 | disposition home or self-care (01) ==
LOC: LBN 10:52
PROVIDERS: PCP Family Medicine; Visit Provider Obstetrics & Gynecology
DX: Z12.4 Encounter for screening for malignant neoplasm of cervix (principal); Z11.51 Encounter for screening for human papillomavirus (HPV)
CPT/HCPCS: 88142; 87624

== ENCOUNTER → 2023-08-08 04:19 | Outpatient (CLI) | payer BC, SELFPAY ==
--- NOTE | 2023-08-08 | DI.MAMMO_ITS ---
Exam(s) MAMMO SCREENING EXAM: MAMMO SCREENING CLINICAL HISTORY: SCREENING,Z12.31. TECHNIQUE: Bilateral full field digital CC and MLO mammographic images were obtained with 3D tomosyn thesis and utilizing computer aided detection (CAD). COMPARISON: Prior mammograms were reviewed. FINDINGS: There has been no significant change in the appearance and distribution of the fibroglandular tissue. Asymmetric nodular density in the left breast is unchanged from 2018 and therefore benign. Skin mole is noted inferomedially. Benign-appearing microcalcifications appear unchanged. There are no new spiculated masses nor malignant appearing microcalcification groups. There is no significant architectural distortion nor skin thickening-retraction. IMPRESSION: Stable benign-appearing findings. No radiographic evidence of malignancy. BI-RADS Category 2 - Benign Findings Breast Density - Category C - Heterogeneously dense Breast density Category C or D implies that the patient has dense breast tissue. Dense breast tissue can make it harder to find cancer on a mammogram. Dense breast tissue is also associated with an incr eased risk of breast cancer. This information about the result of the mammogram report was provided to the patient to raise their awareness. Use this report when you speak with the patient about their risks for breast cancer, which includes their family history. At that time, you may recommend additional screening tests (Ultrasoun d or MRI) as these tests may add significant information. A negative radiographic report should not delay biopsy if a dominant or clinically suspicious mass is present. Up to ten percent of cancers are not identified on mammography. A negative report may reinforce clinical impression. Adenosis and dense breasts may obscure an underlying neoplasm. False positive reports average 6 to 10%. Patient will receive a letter notifying them of these results.
== END ==
PROVIDERS: PCP Family Medicine; Visit Provider Family Medicine
DX: Z12.31 Encounter for screening mammogram for malignant neoplasm of breast (principal)
CPT/HCPCS: 77063; 77067

== ENCOUNTER 2024-07-22 12:39 | Outpatient (REF) | payer BC, SELFPAY ==
[2024-07-22 16:47] LABS: ALT 14 U/L (14-59); AST 13 U/L (15-37); Albumin 3.6 g/dL (3.4-5.0); Alkaline Phosphatase 95 U/L (46-116); Anion Gap 8.5 mmol/L (3-11); BUN 11 mg/dL (7-18); CO2 27.5 mmol/L (21.0-32.0); CREATININE 0.8 mg/dL (0.55-1.02); Calcium 9.8 mg/dL (8.5-10.1); Chloride 105 mmol/L (98-107); Estimated GFR 82.23 (mL/min/1.73m2); Glucose 99 mg/dL (74-106); Potassium 4.3 mmol/L (3.5-5.1); Sodium 141 mmol/L (136-145); Total Protein 7.4 g/dL (6.4-8.2); Vitamin D 25 Total 28.4 ng/mL (30-100)
== END 2024-07-22 12:40 | disposition home or self-care (01) ==
LOC: NCHCN 12:39
PROVIDERS: PCP Student in an Organized Health Care Education/Training Program; Visit Provider Student in an Organized Health Care Education/Training Program
DX: N95.1 Menopausal and female climacteric states (principal)
CPT/HCPCS: 80053; 82306

== ENCOUNTER 2024-10-18 02:14 | Outpatient (CLI) | payer MEDICARE, SELFPAY ==
--- NOTE | 2024-10-18 | DI.DEXA_ITS ---
Exam(s) XR DEXA BONE DENSITY W/WO GENESIS EXAM: XR DEXA BONE DENSITY W/WO GENESIS CLINICAL HISTORY: Menopause present Z78.0 Asymptomatic menopausal state TECHNIQUE: COMPARISON: No exams were available for comparison FINDINGS: Lateral Spine Image: Unremarkable. No compression deformities identified. Left hip: Total T-Score: -0.9 Total Z-Score: 0.3 T- and Z-scores: Within normal limits. Lumbar Spine: Total T-Score: -1.9 Total Z-Score: -0.2 T- and Z-scores: Findings are consistent with osteopenia. IMPRESSION: No evidence of osteoporosis.
== END 2024-10-18 02:34 ==
PROVIDERS: PCP Student in an Organized Health Care Education/Training Program; Visit Provider Student in an Organized Health Care Education/Training Program
DX: Z13.820 Encounter for screening for osteoporosis (principal); Z78.0 Asymptomatic menopausal state
CPT/HCPCS: 77080